=== PATIENT | male | born 1965 | race Caucasian/White ===

== ENCOUNTER 2019-02-03 19:20 | Emergency (ER) | payer OTHER ==
[~2019-02-03] VITALS: Ht 165.1 cm; Wt 89.4 kg
[2019-02-03 19:41] VITALS: Ht 165.1 cm; Wt 89.4 kg
[2019-02-03 21:50] VITALS: BP 139/93
== END 2019-02-03 21:50 | disposition home or self-care (01) ==
LOC: ED 19:20
DX: S01.111A Laceration without foreign body of right eyelid and periocular area, initial encounter (principal); Z98.890 Other specified postprocedural states; W01.198A Fall on same level from slipping, tripping and stumbling with subsequent striking against other object, initial encounter; Y93.89 Activity, other specified; Y92.89 Other specified places as the place of occurrence of the external cause; Y99.8 Other external cause status
CPT/HCPCS: 90715; J2001